=== PATIENT | male | born 1960 ===

== ENCOUNTER 2017-04-11 22:47 | Inpatient (IN) | payer OTHER ==
[2017-04-11] MEDS ORDERED: diltiaZEM 100 mg Vial ( ADD-VANTAGE ) IV ONE (23:53)
[2017-04-12 00:13] LABS: BASO # 0.1 K/uL (0.0-0.2); BASO % 1.2 % (0.0-2.0); EOS # 0.1 K/uL (0.0-0.7); EOS % 1.7 % (0.0-4.0); HEMOGLOBIN 12.4 g/dL (12.0-18.0); LYMPH # 1.7 K/uL (1.0-4.3); LYMPH % 24.7 % (20.0-40.0); MEAN CELL VOLUME 90.7 fl (80.0-94.0); MEAN CORPUSCULAR HEMOGLOBIN 29.5 pg (27.0-31.0); MEAN CORPUSCULAR HGB CONC 32.5 g/dL (33.0-37.0); MEAN PLATELET VOLUME 11.4 fl (7.2-11.7); MONO # 0.6 K/uL (0.0-0.8); NEUT # 4.4 K/uL (1.8-7.0); NEUT % 63.4 % (50.0-75.0); NRBC % 0.1 % (0.0-0.0); RBC 4.22 Mil/uL (4.40-5.90); RED CELL DISTRIBUTION WIDTH 14.7 % (11.5-14.5)
[2017-04-12] MEDS ORDERED: Sodium Chloride 0.9% 500 ML IV STA (00:23)
[2017-04-12 00:27] LABS: ALB/GLOB RATIO 1.3 (1.0-2.1); ALBUMIN 4.2 g/dL (3.5-5.0); ALT/SGPT 38 U/L (21-72); AST/SGOT 27 U/L (17-59); BLOOD UREA NITROGEN 26 mg/dl (9-20); CALCIUM 8.9 mg/dL (8.4-10.2); GFR AFRICAN-AMERICAN > 60; GFR NON-AFRICAN AMERICAN > 60
[2017-04-12] MEDS ORDERED: Sodium Chloride 0.9% 1,000 ML IV STA ×2 (00:56→00:57)
[2017-04-12 01:03] LABS: INR 5.3 (0.9-1.2); PROTHROMBIN TIME 61.7 Seconds (9.8-13.1)
[2017-04-12 01:04] LABS: PARTIAL THROMBOPLASTIN TIME 48.3 Seconds (25.6-37.1)
--- NOTE | 2017-04-12 01:05 | ED PDOC ---
HPI: Chest Pain Time Seen by Provider: 04/11/17 23:24 Chief Complaint (Nursing): Dizziness/Lightheaded Chief Complaint (Provider): Chest Pain History Per: Patient History/Exam Limitations: no limitations (x) Onset/Duration Of Symptoms: Hrs (x2) Current Symptoms Are (Timing): Still Present Quality: Tightness (in shoulders) Associated Symptoms: Nausea, Dyspnea (mild). denies: Diaphoresis Additional Complaint(s): 56 year old male presents to ED with complaints of chest pain and palpitations x2 hours and has a past medical history of DM, AFIB, and dyslipidemia. Describes a "tightness" in his shoulders, and confirms that symptoms are concordant with previous episodes of AFIB. States that he is compliant with his medications and notes that he is on Coumadin. (-) vomiting, diaphoresis, cough, or fever. (+) SOB and nausea. PCP: [facility] Past Medical History Reviewed: Historical Data, Nursing Documentation, Vital Signs Vital Signs: Last Vital Signs Temp 98.2 F 04/14/17 12:05 Pulse 97 H 04/14/17 12:05 Resp 18 04/14/17 12:05 BP 119/78 04/14/17 12:05 Pulse Ox 99 04/14/17 12:05 - Medical History PMH: Atrial Fibrillation, Cardia Arrhythmia, Diabetes, Gastritis, HTN Denies: Chronic Kidney Disease - Surgical History Surgical History: Denies: No Surg Hx Other surgeries: right leg surgery, unspecified - Family History Family History: States: No Known Family Hx - Social History Current smoker - smoking cessation education provided: No Ex-Smoker (has not smoked in the last 12 months): No Alcohol: < 2 Drinks/Day Drugs: Denies - Home Medications Home Medications: Ambulatory Orders Medication Instructions Recorded Carvedilol [Coreg] 25 mg PO BID #60 04/14/17 Digoxin [Lanoxin] 0.25 mg PO DAILY #30 tab 04/14/17 Fenofibrate [Triglide] 160 mg PO DAILY #30 04/14/17 Losartan [Cozaar] 50 mg PO DAILY #30 04/14/17 Lovastatin 20 mg PO DAILY #30 04/14/17 Warfarin [Coumadin] 1 mg PO DAILY #7 04/14/17 metFORMIN [glucOPHAGE] 500 mg PO DAILY #30 04/14/17 - Allergies Allergies/Adverse Reactions: Allergies Allergy/AdvReac Type Severity Reaction Status Date / Time No Known Allergies Allergy Verified 04/11/17 23:07 CHRISTINE Risk Score for UA/NSTEMI - CHRISTINE Risk Score Age > 64: NO CHRISTINE Score: 0 Risk %: 5% Curb-65 Severity Score - CURB-65 Severity Score Confusion: No Respiratory Rate greater than/equal to 30: No Systolic BP <90 or Diastolic BP less than/equal 60mmHg: No Age >64: No Curb-65 Score: 0 Percentage 30-day mortality: 0.6% Wells Criteria for PE - Wells Criteria for Pulmonary Embolism Clinical Signs and Symptoms of DVT: No P.E is #1 Diagnosis, or Equally Likely: No Heart Rate >100: Yes Immobilization at least 3 days;Surgery previous 4 weeks: No Previous, objectively diagnosed PE or DVT: No Hemoptysis: No Malignancy w/treatment within 6 months, or palliative: No Total Score: 1.5 Review of Systems ROS Statement: Except As Marked, All Systems Reviewed And Found Negative Constitutional: Negative for: Fever, Sweats Cardiovascular: Positive for: Chest Pain, Palpitations Respiratory: Positive for: Shortness of Breath. Negative for: Cough Gastrointestinal: Positive for: Nausea. Negative for: Vomiting Musculoskeletal: Positive for: Shoulder Pain (tightness in shoulders) Physical Exam - Reviewed Nursing Documentation Reviewed: Yes Vital Signs Reviewed: Yes - Physical Exam Appears: Positive for: Non-toxic, No Acute Distress Head Exam: Positive for: ATRAUMATIC Skin: Positive for: Normal Color, Warm, Dry Eye Exam: Positive for: Normal appearance, EOMI, PERRL ENT: Positive for: Normal ENT Inspection Neck: Positive for: Normal, Painless ROM, Supple Cardiovascular/Chest: Positive for: Tachycardia, Irregularly Irregular. Negative for: Regular Rate, Rhythm Respiratory: Positive for: Normal Breath Sounds. Negative for: Respiratory Distress Gastrointestinal/Abdominal: Positive for: Normal Exam, Soft. Negative for: Tenderness Back: Positive for: Normal Inspection Extremity: Positive for: Normal ROM. Negative for: Deformity Neurologic/Psych: Positive for: Alert, Oriented. Negative for: Motor/Sensory Deficits - Laboratory Results Result Diagrams: 04/13/17 04:20 04/14/17 05:00 - ECG ECG Rhythm: Positive for: Atrial Fibrillation Interpretation Of ECG: AFIB and RVR Rate: 127 (at 2256) O2 Sat by Pulse Oximetry: 98 (RA) Pulse Ox Interpretation: Normal - Critical Care Total Time (In Min): 60 Medical Decision Making Medical Decision Makin Initial impression: rapid AFIB in setting of known AFIB Initial plan: * EKG * Labs * Trop I * PTT/PT * Cardizem 20mg IV * Accucheck * Re-eval 2355 * Cardizem 100mg IV * Re-eval Patient's rate has improved, still AFIB but controlled rate in 80s. Patient complaints of lightheadedness and additional nausea. Patient is hypotensive after initial administration of Cardizem. Fluid bolus ordered 0023 * Zofran Inj 4mg IVP * NS IV 0100 * CT ANGIO CHEST * NS IV 0115 * EKG * CXR Labs significant for elevated INR but are otherwise within normal limits. Patient will be admitted as a telemetry inpatient under Dr. Cano. Disposition - Clinical Impression Clinical Impression: Atrial fibrillation with RVR, Chest pain Discussed With DrTabitha: Khang Cano Comment: TELE inpatient - Disposition Disposition Time: 00:45 Condition: STABLE - Pt Status Changed To: Hospital Disposition Of: Inpatient (TELE) - Admit Certification Admit to Inpatient:: After my assessment, the patient will require hospitalization for at least two midnights. This is because of the severity of symptoms shown, intensity of services needed, and/or the medical risk in this patient being treated as an outpatient.
--- NOTE | 2017-04-12 01:23 | CP.PCM.HP ---
History of Present Illness - History of Present Illness History of Present Illness: PCP: Not on staff Chief Complaint: Lightheadedness/ chest pain HPI:56 yeas old male with hx of DM, HLD, HTN and A Fib comes with 2 hours of aa tightness type of chest pain radiating to the shoulders and similar in quality as when he has prior episodes of rapid A Fib. No nausea, vomits, no palpitation nor diaphoresis. He does refer lightheadedness, headache and pain to the back. PMH: A Fib, Diabetes, Gastritis, HTN, HLD PSH: Right Tibia ORIF SH; No illegal drugs; Alcohol daily; No smoking; Live alone; works in a [employer]. AllergY: NKDA Present on Admission - Present on Admission Any Indicators Present on Admission: No History of DVT/PE: No History of Uncontrolled Diabetes: No Urinary Catheter: No Decubitus Ulcer Present: No Review of Systems - Constitutional Constitutional: Headache. absent: Fatigue, Fever, Lethargy, Weakness - EENT Eyes: Requires Corrective Lenses. absent: Diplopia, Floaters, Photophobia, Sees Flashes Ears: absent: Decreased Hearing, Ear Discharge, Ear Pain, Tinnitus Nose/Mouth/Throat: absent: Epistaxis, Nasal Congestion, Nasal Discharge - Cardiovascular Cardiovascular: Chest Pain, Dyspnea. absent: Edema - Respiratory Respiratory: Dyspnea, Chest Congestion. absent: Cough - Gastrointestinal Gastrointestinal: absent: Constipation, Diarrhea, Nausea, Vomiting - Genitourinary Genitourinary: absent: Dysuria, Flank Pain, Hematuria - Musculoskeletal Musculoskeletal: Back Pain. absent: Arthralgias, Muscle Cramps, Numbness - Integumentary Integumentary: absent: Pruritus, Rash, Skin Ulcer, Sores, Striae, Swelling - Neurological Neurological: Dizziness, Headaches. absent: Confusion, Focal Weakness, Vertigo - Psychiatric Psychiatric: absent: Anxiety, Depression, Panic Attacks - Endocrine Endocrine: absent: Palpitations, Polydipsia, Polyphagia, Polyuria - Hematologic/Lymphatic Hematologic: absent: Easy Bleeding, Easy Bruising Past Patient History - Past Social History Smoking Status: Never Smoked Chewing Tobacco Use: No Cigar Use: No Alcohol: < 2 Drinks/Day Home Situation {Lives}: Alone - CARDIAC Hx Cardia Arrhythmia: Yes Hx Hypertension: Yes - PULMONARY Hx Respiratory Disorders: No - NEUROLOGICAL Hx Neurological Disorder: No - HEENT Hx HEENT Problems: No - RENAL Hx Chronic Kidney Disease: No - ENDOCRINE/METABOLIC Hx Endocrine Disorders: No - HEMATOLOGICAL/ONCOLOGICAL Hx Blood Disorders: No - INTEGUMENTARY Hx Dermatological Problems: No - MUSCULOSKELETAL/RHEUMATOLOGICAL Hx Musculoskeletal Disorders: No - GASTROINTESTINAL Hx Gastritis: Yes - GENITOURINARY/GYNECOLOGICAL Hx Genitourinary Disorders: No - PSYCHIATRIC Hx Psychophysiologic Disorder: No Hx Substance Use: No - SURGICAL HISTORY Hx Surgeries: Yes Other/Comment: Right Tibia ORIF - ANESTHESIA Hx Anesthesia: Yes Hx Anesthesia Reactions: No Meds Allergies/Adverse Reactions: Allergies Allergy/AdvReac Type Severity Reaction Status Date / Time No Known Allergies Allergy Verified 04/11/17 23:07 Physical Exam - Constitutional Appears: No Acute Distress - Head Exam Head Exam: ATRAUMATIC, NORMAL INSPECTION, NORMOCEPHALIC - Eye Exam Eye Exam: EOMI, PERRL Pupil Exam: NORMAL ACCOMODATION, PERRL - ENT Exam ENT Exam: Mucous Membranes Moist, Normal Exam, Normal External Ear Exam, Normal Oropharynx - Neck Exam Neck exam: Positive for: Full Rom, Normal Inspection. Negative for: Lymphadenopathy, Tenderness - Respiratory Exam Respiratory Exam: Rales. absent: Rhonchi, Wheezes, Stridor - Cardiovascular Exam Cardiovascular Exam: Irregular Rhythm, RRR, +S1, +S2 - GI/Abdominal Exam Additional comments: Full, Soft Nontender, no viceromegaleas - Rectal Exam Rectal Exam: Deferred - Extremities Exam Extremities exam: Positive for: full ROM, normal inspection - Back Exam Back exam: NORMAL INSPECTION. absent: CVA tenderness (L), CVA tenderness (R) - Neurological Exam Neurological exam: Alert, CN II-XII Intact, Oriented x3, Reflexes Normal - Psychiatric Exam Psychiatric exam: Normal Affect, Normal Mood - Skin Skin Exam: Dry, Intact, Normal Color, Warm Results - Vital Signs Recent Vital Signs: Last Vital Signs Temp 98.0 F 04/11/17 23:03 Pulse 84 04/12/17 00:21 Resp 16 04/12/17 00:21 BP 92/61 L 04/12/17 00:21 Pulse Ox 98 04/12/17 01:05 - Labs Result Diagrams: 04/11/17 23:51 04/11/17 23:51 Labs: Laboratory Results - last 24 hr 04/11/17 04/11/17 04/11/17 23:51 23:51 23:51 WBC 7.0 RBC 4.22 L Hgb 12.4 Hct 38.3 MCV 90.7 MCH 29.5 MCHC 32.5 L RDW 14.7 H Plt Count 235 MPV 11.4 Neut % (Auto) 63.4 Lymph % (Auto) 24.7 Nance % (Auto) 9.0 Eos % (Auto) 1.7 Baso % (Auto) 1.2 Neut # 4.4 Lymph # 1.7 Nance # 0.6 Eos # 0.1 Baso # 0.1 PT 61.7 H* INR 5.3 H APTT 48.3 H Sodium 144 Potassium 4.2 Chloride 110 H Carbon Dioxide 21 L Anion Gap 17 BUN 26 H Creatinine 1.2 Est GFR ( Amer) > 60 Est GFR (Non-Af Amer) > 60 Random Glucose 111 H Calcium 8.9 Total Bilirubin 0.7 AST 27 ALT 38 Alkaline Phosphatase 33 L Troponin I < 0.0120 Total Protein 7.5 Albumin 4.2 Globulin 3.3 Albumin/Globulin Ratio 1.3 - EKG Data EKG comments: Fib 127/min - Imaging and Cardiology CT scan - chest Status: Report reviewed by me Additional comment: FINDINGS: Pulmonary arteries: No pulmonary embolism. Aorta: No thoracic aortic aneurysm. Lungs: No mass. No consolidation. Interstitial thickening is identified, with bilateral (small) pleural effusions and adjacent compressive atelectasis. Pleural spaces: No significant effusion. No pneumothorax. Heart: Marked left atrial enlargement. The left ventricle is also enlarged. No significant pericardial effusion. No evidence of right heart dysfunction. Bones: No acute fracture. Lymph nodes: No pathologically enlarged lymph nodes. IMPRESSION: No pulmonary embolism. Significant left atrial enlargement. Interstitial thickening with bilateral pleural effusions and adjacent compressive atelectasis. Chest x-ray Status: Image reviewed by me Additional comment: Cardiomegaly with no infiltrates Assessment & Plan - Assessment and Plan (Free Text) Assessment: #. A Fib With RVR #. Chest Pain #. Coumadin Toxicity #. dehydration #. Anemia Plan: 56 yeas old male with hx of DM, HLD, HTN and A Fib comes with 2 hours of aa tightness type of chest pain radiating to the shoulders and similar in quality as when he has prior episodes of rapid A Fib. No nausea, vomits, no palpitation nor diaphoresis. He does refer lightheadedness, headache and pain to the upper back. #. A Fib With RVR. patient received Bolus of Cardizem in ED - admit to Telemetry - cardiac monitoring -Consult Dr Liang slackman - Continue IV Cardizem drip and titrate to HR<100 #. Chest Pain - Cardiology on consult - serial troponina nd EKG - ECHO for wall motion and EJ fraction #. Coumadin Toxicity - Coumadin on hold - follow INR daily #. dehydration - IV fluids NS #. Anemia - follow HB #/ DVT Prophylaxis - Patient with supratherapeutic INR - SCD #. Code Status: Full - Date & Time Date: 04/12/17 Time: 01:23
[2017-04-12] MEDS ORDERED: Iohexol 300 100 ML IJ ONE (01:30)
[2017-04-12] MEDS ORDERED: Sodium Chloride 0.9% 50 ML IV ONE (01:30)
[2017-04-12] MEDS ORDERED: Sodium Chloride 0.9% 1,000 ML IV SCH (03:00)
[2017-04-12 04:50] VITALS: BMI 28.1
[2017-04-12] MEDS: Pravastatin Sodium 20 MG TAB PO SCH (08:17)
[2017-04-12 08:26] LABS: HEMOGLOBIN 12.3 g/dL (12.0-18.0); MEAN CELL VOLUME 90.5 fl (80.0-94.0); MEAN CORPUSCULAR HEMOGLOBIN 29.4 pg (27.0-31.0); MEAN CORPUSCULAR HGB CONC 32.5 g/dL (33.0-37.0); RBC 4.18 Mil/uL (4.40-5.90); RED CELL DISTRIBUTION WIDTH 14.7 % (11.5-14.5); WHITE BLOOD COUNT 7.4 K/uL (4.8-10.8)
--- NOTE | 2017-04-12 08:31 | CARD ---
APPROVED REPORT EKG Measurement Heart [id number] <Conclusion> Atrial fibrillation with rapid ventricular response Rightward axis Abnormal ECG
--- NOTE | 2017-04-12 08:34 | CARD ---
APPROVED REPORT EKG Measurement Heart [id number] <Conclusion> Atrial fibrillation Rightward axis Abnormal ECG
[2017-04-12 08:42] LABS: PARTIAL THROMBOPLASTIN TIME 46.6 Seconds (25.6-37.1)
[2017-04-12] MEDS ORDERED: Patient's Own Med (Lovastatin [Lovastatin] 20 mg) PO SCH (09:00)
[2017-04-12 10:09] LABS: INR 4.9 (0.9-1.2)
[2017-04-12 10:11] LABS: PROTHROMBIN TIME 57.2 Seconds (9.8-13.1)
--- NOTE | 2017-04-12 10:50 | RAD ---
HISTORY: Chest pain. COMPARISON: No prior. FINDINGS: LUNGS: No active pulmonary disease. PLEURA: No significant pleural effusion identified, no pneumothorax apparent. CARDIOVASCULAR: Cardiomegaly. No evidence of acute, significant cardiovascular disease. OSSEOUS STRUCTURES: No significant abnormalities. VISUALIZED UPPER ABDOMEN: Normal. OTHER FINDINGS: None. IMPRESSION: No active disease.
[2017-04-12 10:52] LABS: IRON 33 ug/dL (49-181)
--- NOTE | 2017-04-12 10:55 | CT ---
PROCEDURE: CT Chest with contrast (Pulmonary Angiogram) HISTORY: chest pain r/o PE COMPARISON: None available. TECHNIQUE: Axial computed tomography images were obtained of the chest in the pulmonary arterial phase of enhancement. Coronal and sagittal reformatted images were created and reviewed. Maximum intensity projection (MIP) reconstructed images in the following planes: Axial only Intravenous contrast dose: 95 cc Omnipaque 300. Mean Hounsfield unit values in the main pulmonary artery: 431.92 Radiation dose: Total exam DLP = 443.25 mGy-cm. This CT exam was performed using one or more of the following dose reduction techniques: Automated exposure control, adjustment of the mA and/or kV according to patient size, and/or use of iterative reconstruction technique. FINDINGS: PULMONARY ARTERIES: Unremarkable. No pulmonary embolism. AORTA: No acute findings. No thoracic aortic aneurysm. LUNGS: Unremarkable. No nodule, mass or pulmonary consolidation. PLEURAL SPACES: Unremarkable. No effusion or pneuomothorax. HEART: Cardiomegaly. No evidence of acute, significant cardiovascular disease. LYMPH NODES: Hilar and mediastinal lymph nodes. The largest azygos lymph node measures 1.6 x 2.2 cm. The preponderance of other lymph nodes 1 cm or less. BONES, CHEST WALL: Unremarkable. No fracture or destructive lesion OTHER FINDINGS: Unremarkable. IMPRESSION: Unremarkable CT pulmonary angiogram. No pulmonary embolus.Additional benign and/or incidental findings described above. Concordant results (preliminary interpretation) provided by [facility]. Procedure Completed: :38. Preliminary ([facility]) Report: Dictated and Authenticated: 02:06. Final Interpretation: 10:53. April 12, 2017.
[2017-04-12 11:01] LABS: % IRON SATURATION 9 % (20-55); TOTAL IRON BINDING CAPACITY 346 ug/dL (250-450)
--- NOTE | 2017-04-12 11:06 | CP.PCM.CON ---
History of Present Illness - History of Present Illness History of Present Illness: This is a 56-year-old male who was admitted with chest pain. He has a history of atrial fibrillation and 1 minute he was in a rapid ventricular response. Patient denies having chest pains but does say that he had shortness of breath and palpitations. His chest prior to admission He claims this is exactly how he felt last time he was in atrial fibrillation. His home medications include Coreg and Coumadin 3 mg daily His PT and INR extremely elevated on admission His resting comfortably in bed and is asymptomatic. In atrial fibrillation and a controlled rate. EKG: Atrial Fibrillation Troponin: neg PMH: A Fib, Diabetes, Gastritis, HTN, HLD PSH: Right Tibia ORIF SH; No illegal drugs; Alcohol daily; No smoking; Live alone; works in a [employer]. AllergY: NKDA Review of Systems - Constitutional Constitutional: As Per HPI - Cardiovascular Cardiovascular: As Per HPI, Dyspnea, Irregular Heart Rhythm Past Patient History - Past Medical History & Family History Past Medical History?: Yes - Past Social History Smoking Status: Never Smoked Chewing Tobacco Use: No Cigar Use: No Alcohol: < 2 Drinks/Day Home Situation {Lives}: Alone - CARDIAC Hx Cardia Arrhythmia: Yes Hx Hypertension: Yes - PULMONARY Hx Respiratory Disorders: No - NEUROLOGICAL Hx Neurological Disorder: No - HEENT Hx HEENT Problems: No - RENAL Hx Chronic Kidney Disease: No - ENDOCRINE/METABOLIC Hx Endocrine Disorders: No - HEMATOLOGICAL/ONCOLOGICAL Hx Blood Disorders: No - INTEGUMENTARY Hx Dermatological Problems: No - MUSCULOSKELETAL/RHEUMATOLOGICAL Hx Musculoskeletal Disorders: No - GASTROINTESTINAL Hx Gastritis: Yes - GENITOURINARY/GYNECOLOGICAL Hx Genitourinary Disorders: No - PSYCHIATRIC Hx Psychophysiologic Disorder: No Hx Substance Use: No - SURGICAL HISTORY Hx Surgeries: Yes Other/Comment: Right Tibia ORIF - ANESTHESIA Hx Anesthesia: Yes Hx Anesthesia Reactions: No Meds Allergies/Adverse Reactions: Allergies Allergy/AdvReac Type Severity Reaction Status Date / Time No Known Allergies Allergy Verified 04/11/17 23:07 - Medications Medications: Current Medications Carvedilol (Coreg) 25 mg PO BID [facility] Last Admin: 04/12/17 08:17 Dose: 25 mg Fenofibrate (Tricor) 145 mg PO DAILY [facility] Last Admin: 04/12/17 08:17 Dose: 145 mg Diltiazem HCl 100 mg/ Sodium (Chloride) 120 mls @ 6 mls/hr IV .Q20H ONE; 5 MG/ HR PRN Reason: Protocol Stop: 04/12/17 19:52 Last Admin: 04/12/17 03:16 Dose: Not Given Lorazepam (Ativan) 1 mg IVP Q4 PRN PRN Reason: Symptoms of alcohol withdrawl Ondansetron HCl (Zofran Inj) 4 mg IVP Q4 PRN PRN Reason: Nausea/Vomiting Pravastatin Sodium (Pravachol) 20 mg PO DAILY [facility] Last Admin: 04/12/17 08:17 Dose: 20 mg Thiamine HCl (Vitamin B1 Tab) 100 mg PO DAILY [facility] Physical Exam - Constitutional Appears: Well - Head Exam Head Exam: NORMAL INSPECTION - Eye Exam Eye Exam: Normal appearance - ENT Exam ENT Exam: Normal Exam - Neck Exam Neck exam: Positive for: Normal Inspection - Respiratory Exam Respiratory Exam: NORMAL BREATHING PATTERN - Cardiovascular Exam Cardiovascular Exam: Irregular Rhythm - GI/Abdominal Exam GI & Abdominal Exam: Normal Bowel Sounds Results - Vital Signs Recent Vital Signs: Last Vital Signs Temp 98.8 F 04/12/17 07:52 Pulse 120 H 04/12/17 08:17 Resp 20 04/12/17 07:52 BP 90/52 L 04/12/17 08:17 Pulse Ox 100 04/12/17 07:52 - Labs Result Diagrams: 04/12/17 08:00 04/11/17 23:51 Labs: Laboratory Results - last 24 hr 04/12/17 04/12/17 04/12/17 02:53 05:39 08:00 WBC RBC Hgb Hct MCV MCH MCHC RDW Plt Count PT INR APTT POC Glucose (mg/dL) 180 H 91 Troponin I < 0.0120 04/12/17 04/12/17 08:00 08:00 WBC 7.4 RBC 4.18 L Hgb 12.3 Hct 37.9 MCV 90.5 MCH 29.4 MCHC 32.5 L RDW 14.7 H Plt Count 222 PT 57.2 H* INR 4.9 H APTT 46.6 H POC Glucose (mg/dL) Troponin I Assessment & Plan (1) Atrial fibrillation with RVR Assessment and Plan: Patient had been on a diltiazem drip and now is on Coreg 25 mg twice a day His heart rate is controlled at this point. Cardiac-zaragoza he appears stable. We'll continue to follow with you Status: Acute (2) Essential (primary) hypertension Status: Acute (3) DM2 (diabetes mellitus, type 2) Status: Acute
[2017-04-12] MEDS ORDERED: Multivitamin (MVI) 10 ML, Folic Acid 1 MG, Thiamine 100 MG in Dextrose 5%/0.45% NS 1,00... IV ONE (12:20)
[2017-04-12 12:42] LABS: BLOOD UREA NITROGEN 25 mg/dl (9-20); CALCIUM 8.2 mg/dL (8.4-10.2); GFR AFRICAN-AMERICAN > 60; GFR NON-AFRICAN AMERICAN > 60
[2017-04-12 13:39] LABS: MAGNESIUM 1.9 MG/DL (1.6-2.3)
--- NOTE | 2017-04-12 14:53 | CARD ---
APPROVED REPORT EXAM: Two-dimensional and M-mode echocardiogram with Doppler and color Doppler. Other Information Quality : GoodRhythm : Atrial Fibrillation INDICATION LV Function:SystolicDiastolic 2D DIMENSIONS IVSd1.02 (0.7-1.1cm)LVDd5.89 (3.9-5.9cm) LVOT Diameter2.42 (1.8-2.4cm)PWd0.81 (0.7-1.1cm) IVSs1.03 (0.8-1.2cm)LVDs5.48 (2.5-4.0cm) FS (%) 7.0 %PWs1.17 (0.8-1.2cm) M-Mode DIMENSIONS Left Atrium (MM)7.86 (2.5-4.0cm)IVSd0.66 (0.7-1.1cm) Aortic Root2.34 (2.2-3.7cm)LVDd7.23 (4.0-5.6cm) Aortic Cusp Exc.1.75 (1.5-2.0cm)PWd0.91 (0.7-1.1cm) IVSs0.94 cmFS (%) 21 % LVDs5.69 (2.0-3.8cm)PWs1.15 cm Mitral Valve E/A ratio0.0 TDI E/Lateral E'0.0E/Medial E'0.0 Tricuspid Valve TR Peak [id number] [id number] Peak Gr.47mmHg [id number] LEFT VENTRICLE The Left Ventricle is mildly dilated. There is normal left ventricular wall thickness. Left ventricle systolic function is mildly to moderately impaired. The Ejection Fraction is 30-35 There was mild generalised hypokinesia Could not be assesed due to A Fib. RIGHT VENTRICLE The right ventricle is normal size. The right ventricular systolic function is normal. ATRIA The left atrium is severely dilated. The right atrium is moderately dilated. AORTIC VALVE The aortic valve is normal in structure and function. No aortic regurgitation is present. There is no aortic valvular stenosis. MITRAL VALVE The mitral valve is normal in structure. There is no evidence of mitral valve prolapse. There is no mitral valve stenosis. Mitral regurgitation is severe. TRICUSPID VALVE The tricuspid valve is normal in structure. There is moderate tricuspid regurgitation. Right ventricular systolic pressure is estimated at 60 mmHg. There is severe pulmonary hypertension. PULMONIC VALVE The pulmonary valve is normal in structure and function. There is no pulmonic valvular regurgitation. GREAT VESSELS The aortic root is normal in size. The IVC is dilated. PERICARDIAL EFFUSION The pericardium appears normal. <Conclusion> The Left Ventricle is mildly dilated. There is normal left ventricular wall thickness. There was mild generalised hypokinesia Left ventricle systolic function is mildly to moderately impaired. The Ejection Fraction is 30-35 The left atrium is severely dilated. The right atrium is moderately dilated. Mitral regurgitation is severe. There is moderate tricuspid regurgitation. There is severe pulmonary hypertension. The IVC is dilated.
[2017-04-12] MEDS: Pantoprazole 40 mg EC Tab PO SCH (17:20)
[2017-04-12 19:34] LABS: FOLATE 12.9 ng/mL
[2017-04-13 05:17] LABS: HEMOGLOBIN 12.3 g/dL (12.0-18.0); MEAN CELL VOLUME 91.6 fl (80.0-94.0); MEAN CORPUSCULAR HEMOGLOBIN 29.5 pg (27.0-31.0); MEAN CORPUSCULAR HGB CONC 32.3 g/dL (33.0-37.0); RBC 4.15 Mil/uL (4.40-5.90); RED CELL DISTRIBUTION WIDTH 14.8 % (11.5-14.5); WHITE BLOOD COUNT 7.6 K/uL (4.8-10.8)
[2017-04-13 05:33] LABS: ALB/GLOB RATIO 1.3 (1.0-2.1); ALBUMIN 3.8 g/dL (3.5-5.0); ALT/SGPT 39 U/L (21-72); AST/SGOT 30 U/L (17-59); BLOOD UREA NITROGEN 22 mg/dl (9-20); CALCIUM 8.5 mg/dL (8.4-10.2); GFR AFRICAN-AMERICAN > 60; GFR NON-AFRICAN AMERICAN > 60
[2017-04-13 05:46] LABS: INR 4.1 (0.9-1.2); PROTHROMBIN TIME 47.9 Seconds (9.8-13.1)
[2017-04-13 05:47] LABS: PARTIAL THROMBOPLASTIN TIME 44.1 Seconds (25.6-37.1)
[2017-04-13] MEDS: Pravastatin Sodium 20 MG TAB PO SCH (08:22)
[2017-04-13] MEDS: Pantoprazole 40 mg EC Tab PO SCH (08:24)
[2017-04-13] MEDS ORDERED: Digoxin 500 mcg/2ml (0.5 mg/2ml) Inj IVP ONE (08:30)
--- NOTE | 2017-04-13 08:53 | CP.PCM.PN ---
Subjective - Date & Time of Evaluation Date of Evaluation: 04/13/17 Time of Evaluation: 08:50 - Subjective Subjective: Called by nurse for this Telemetry overflow patient c/o dizziness and noted to be ion persistent rapid A Fib with HR 128 despite dose of digoxin 0.5mfg IV and orders noted to start on PO digoxin. Awake and facial appearance noted to be uncomfortable, denies any chest discomfort nor SOB, no hypoxemia noted, Bp 140/76. Decision made to treat with Cardizem bolus 20mg and start Cardizem drip at 5 mg/hr. HR responded and now at 105.
[2017-04-13] MEDS ORDERED: Digoxin 0.05 mg/mL Elixir 5mL PO SCH (09:00)
[2017-04-13] MEDS ORDERED: Digoxin 250 mcg (0.25 mg) Tab PO SCH (09:00)
--- NOTE | 2017-04-13 11:19 | CP.PCM.PN ---
Subjective - Date & Time of Evaluation Date of Evaluation: 04/13/17 Time of Evaluation: 10:30 - Subjective Subjective: Pt's HR remains elevated despite Coreg - Dig added by Dr Liang however still elevated HR added dose of Cardizem IV 10 mg x 1 till Dig and Coreg takes effect had palpitaion no CP no SOB no abd pain no signs of withdrawal ' admits to drinking beer about 4 bottles/day but denies tremors Objective - Vital Signs/Intake and Output Vital Signs (last 24 hours): Temp Pulse Resp BP Pulse Ox 97.9 F 133 H 12 156/86 H 95 04/13/17 08:00 04/13/17 08:47 04/13/17 08:47 04/13/17 08:47 04/13/17 08:47 Intake and Output: 04/13/17 04/13/17 06:59 18:59 Intake Total 500 Output Total 350 Balance 150 - Medications Medications: Current Medications Carvedilol (Coreg) 25 mg PO BID [facility] Last Admin: 04/13/17 08:22 Dose: 25 mg Digoxin (Lanoxin) 0.25 mg PO DAILY [facility] Fenofibrate (Tricor) 145 mg PO DAILY [facility] Last Admin: 04/13/17 08:22 Dose: 145 mg Lorazepam (Ativan) 1 mg IVP Q4 PRN PRN Reason: Symptoms of alcohol withdrawl Ondansetron HCl (Zofran Inj) 4 mg IVP Q4 PRN PRN Reason: Nausea/Vomiting Pantoprazole Sodium (Protonix Ec Tab) 40 mg PO DAILY [facility] Last Admin: 04/13/17 08:24 Dose: 40 mg Pravastatin Sodium (Pravachol) 20 mg PO DAILY [facility] Last Admin: 04/13/17 08:22 Dose: 20 mg Thiamine HCl (Vitamin B1 Tab) 100 mg PO DAILY [facility] Last Admin: 04/13/17 08:23 Dose: 100 mg - Labs Labs: 04/13/17 04:20 04/13/17 04:20 PT 47.9 Seconds (9.8-13.1) H* D 04/13/17 04:20 INR 4.1 (0.9-1.2) H 04/13/17 04:20 APTT 44.1 Seconds (25.6-37.1) H 04/13/17 04:20 - Constitutional Appears: No Acute Distress - Head Exam Head Exam: NORMAL INSPECTION, NORMOCEPHALIC - Eye Exam Eye Exam: EOMI, Normal appearance, PERRL Pupil Exam: NORMAL ACCOMODATION - ENT Exam ENT Exam: Mucous Membranes Moist, Normal External Ear Exam - Neck Exam Neck Exam: Full ROM. absent: Meningismus - Respiratory Exam Respiratory Exam: NORMAL BREATHING PATTERN. absent: Rales, Wheezes, Respiratory Distress - Cardiovascular Exam Cardiovascular Exam: Tachycardia, Irregular Rhythm, +S1, +S2 - GI/Abdominal Exam GI & Abdominal Exam: Distended, Soft, Normal Bowel Sounds. absent: Tenderness - Extremities Exam Extremities Exam: Full ROM, Normal Capillary Refill. absent: Calf Tenderness, Joint Swelling - Back Exam Back Exam: Full ROM, NORMAL INSPECTION. absent: CVA tenderness (L), CVA tenderness (R), paraspinal tenderness - Neurological Exam Neurological Exam: Alert, Awake, CN II-XII Intact, Normal Gait, Oriented x3 Neuro motor strength exam: Left Upper Extremity: 5, Right Upper Extremity: 5, Left Lower Extremity: 5, Right Lower Extremity: 5 - Psychiatric Exam Psychiatric exam: Normal Affect, Normal Mood - Skin Skin Exam: Dry, Normal Color, Warm Assessment and Plan (1) Atrial fibrillation with RVR Status: Acute (2) Coumadin toxicity Status: Acute (3) Essential (primary) hypertension Status: Chronic (4) DM2 (diabetes mellitus, type 2) Status: Chronic (5) DVT prophylaxis Status: Acute - Assessment and Plan (Free Text) Assessment: 56 y/o gent with hx of A Fib, HTN, DM came in bec of chest tightness. Found to be in rapid A Fib. (1) Atrial fibrillation with RVR Status: Acute initially started on Cardizem drip, now off drip on Coreg HR still elevated Cardio consulted- Dr Liang- rec to add Digoxin TSH : normal CTA of chest : neg PE ECHO: severe hypokinesia, Dilated atrium, Severe MR and Severe Pulm HTN, Mod TR , EF=30-35% (2) Coumadin toxicity Status: Acute pt takes 1mg x 5 days and 2mg x 2days INR= prolonged 5.3, today its 4.1 Coumadin on hold (3) Essential (primary) hypertension Status: Chronic cont Coreg (4) DM2 (diabetes mellitus, type 2) Status: Chronic hold Metformin as pt received IV contrast during CTA accucheck with coverage (5) DVT prophylaxis Status: Acute INR proloned - pt on Coumadin
--- NOTE | 2017-04-13 12:22 | CP.PCM.PN ---
Subjective - Date & Time of Evaluation Date of Evaluation: 04/13/17 Time of Evaluation: 11:00 - Subjective Subjective: the patient remains in atrial fibrillation Heart rate is 135 bpm despite being on Coreg 25mg BID reported digoxin 0.5 mg IV to be given By 0.25 mg by mouth daily desoite this the heart rate remained elevated and a diltiazem drip was started his heart rate now is 90-95 bpm Objective - Vital Signs/Intake and Output Vital Signs (last 24 hours): Temp Pulse Resp BP Pulse Ox 99 F 92 H 28 H 137/96 H 99 04/13/17 12:00 04/13/17 12:00 04/13/17 12:00 04/13/17 12:00 04/13/17 12:00 Intake and Output: 04/13/17 04/13/17 06:59 18:59 Intake Total 500 Output Total 350 Balance 150 - Medications Medications: Current Medications Carvedilol (Coreg) 25 mg PO BID [facility] Last Admin: 04/13/17 08:22 Dose: 25 mg Digoxin (Lanoxin) 0.25 mg PO DAILY [facility] Fenofibrate (Tricor) 145 mg PO DAILY [facility] Last Admin: 04/13/17 08:22 Dose: 145 mg Lorazepam (Ativan) 1 mg IVP Q4 PRN PRN Reason: Symptoms of alcohol withdrawl Ondansetron HCl (Zofran Inj) 4 mg IVP Q4 PRN PRN Reason: Nausea/Vomiting Pantoprazole Sodium (Protonix Ec Tab) 40 mg PO DAILY [facility] Last Admin: 04/13/17 08:24 Dose: 40 mg Pravastatin Sodium (Pravachol) 20 mg PO DAILY [facility] Last Admin: 04/13/17 08:22 Dose: 20 mg Thiamine HCl (Vitamin B1 Tab) 100 mg PO DAILY [facility] Last Admin: 04/13/17 08:23 Dose: 100 mg - Labs Labs: 04/13/17 04:20 04/13/17 04:20 PT 47.9 Seconds (9.8-13.1) H* D 04/13/17 04:20 INR 4.1 (0.9-1.2) H 04/13/17 04:20 APTT 44.1 Seconds (25.6-37.1) H 04/13/17 04:20 Assessment and Plan (1) Atrial fibrillation with RVR Status: Acute (2) Essential (primary) hypertension Status: Acute (3) DM2 (diabetes mellitus, type 2) Status: Acute
[2017-04-14 06:56] LABS: INR 2.3 (0.9-1.2); PROTHROMBIN TIME 25.9 Seconds (9.8-13.1)
[2017-04-14 07:21] LABS: BLOOD UREA NITROGEN 15 mg/dl (9-20); CALCIUM 8.2 mg/dL (8.4-10.2); GFR AFRICAN-AMERICAN > 60; GFR NON-AFRICAN AMERICAN > 60
[2017-04-14 08:29] VITALS: RESP 18
[2017-04-14] MEDS ORDERED: Digoxin 250 mcg (0.25 mg) Tab PO SCH (09:00)
[2017-04-14] MEDS: Pravastatin Sodium 20 MG TAB PO SCH (09:14)
[2017-04-14] MEDS: Pantoprazole 40 mg EC Tab PO SCH (09:14)
[2017-04-14 09:15] VITALS: PULSE 98
[2017-04-14 12:05] VITALS: BP 119/78; TEMP 98.2
--- NOTE | 2017-04-14 12:07 | CP.PCM.DIS ---
Provider - Provider Date of Admission: 04/12/17 01:04 Attending physician: Khang Cano Primary care physician: Gabriel anguiano Consults: cardiology consult Time Spent in preparation of Discharge (in minutes): 20 Hospital Course - Lab Results Lab Results: Micro Results 04/12/17 05:14 Nose MRSA Culture (Admit) - Final MRSA NOT DETECTED Most Recent Lab Values WBC 7.6 K/uL (4.8-10.8) 04/13/17 04:20 RBC 4.15 Mil/uL (4.40-5.90) L 04/13/17 04:20 Hgb 12.3 g/dL (12.0-18.0) 04/13/17 04:20 Hct 38.0 % (35.0-51.0) 04/13/17 04:20 MCV 91.6 fl (80.0-94.0) 04/13/17 04:20 MCH 29.5 pg (27.0-31.0) 04/13/17 04:20 MCHC 32.3 g/dL (33.0-37.0) L 04/13/17 04:20 RDW 14.8 % (11.5-14.5) H 04/13/17 04:20 Plt Count 219 K/uL (130-400) 04/13/17 04:20 MPV 11.4 fl (7.2-11.7) 04/11/17 23:51 Neut % (Auto) 63.4 % (50.0-75.0) 04/11/17 23:51 Lymph % (Auto) 24.7 % (20.0-40.0) 04/11/17 23:51 [place] % (Auto) 9.0 % (0.0-10.0) 04/11/17 23:51 Eos % (Auto) 1.7 % (0.0-4.0) 04/11/17 23:51 Baso % (Auto) 1.2 % (0.0-2.0) 04/11/17 23:51 Neut # 4.4 K/uL (1.8-7.0) 04/11/17 23:51 Lymph # 1.7 K/uL (1.0-4.3) 04/11/17 23:51 [place] # 0.6 K/uL (0.0-0.8) 04/11/17 23:51 Eos # 0.1 K/uL (0.0-0.7) 04/11/17 23:51 Baso # 0.1 K/uL (0.0-0.2) 04/11/17 23:51 PT 25.9 Seconds (9.8-13.1) H D 04/14/17 05:00 INR 2.3 (0.9-1.2) H D 04/14/17 05:00 APTT 44.1 Seconds (25.6-37.1) H 04/13/17 04:20 Sodium 137 mmol/l (132-148) 04/14/17 05:00 Potassium 3.8 MMOL/L (3.6-5.0) 04/14/17 05:00 Chloride 105 mmol/L (98-107) 04/14/17 05:00 Carbon Dioxide 23 mmol/L (22-30) 04/14/17 05:00 Anion Gap 13 (10-20) 04/14/17 05:00 BUN 15 mg/dl (9-20) 04/14/17 05:00 Creatinine 0.9 mg/dL (0.8-1.5) 04/14/17 05:00 Est GFR ( Amer) > 60 04/14/17 05:00 Est GFR (Non-Af Amer) > 60 04/14/17 05:00 POC Glucose (mg/dL) 106 mg/dL (65-110) 04/14/17 05:17 Random Glucose 100 mg/dL (75-110) 04/14/17 05:00 Calcium 8.2 mg/dL (8.4-10.2) L 04/14/17 05:00 Phosphorus 3.6 mg/dl (2.5-4.5) 04/12/17 12:26 Magnesium 1.9 MG/DL (1.6-2.3) 04/12/17 12:26 Iron 33 ug/dL (49-181) L 04/12/17 08:30 TIBC 346 ug/dL (250-450) 04/12/17 08:30 % Saturation 9 % (20-55) L 04/12/17 08:30 Total Bilirubin 1.3 mg/dl (0.2-1.3) 04/13/17 04:20 AST 30 U/L (17-59) 04/13/17 04:20 ALT 39 U/L (21-72) 04/13/17 04:20 Alkaline Phosphatase 34 U/L (38-126) L 04/13/17 04:20 Troponin I < 0.0120 ng/mL (0.00-0.120) 04/12/17 08:00 Total Protein 6.8 G/DL (6.3-8.2) 04/13/17 04:20 Albumin 3.8 g/dL (3.5-5.0) 04/13/17 04:20 Globulin 3.0 gm/dL (2.2-3.9) 04/13/17 04:20 Albumin/Globulin Ratio 1.3 (1.0-2.1) 04/13/17 04:20 Vitamin B12 > 1000 pg/mL (239-931) H 04/12/17 09:00 Folate 12.9 ng/mL 04/12/17 09:00 TSH 3rd Generation 4.04 mIU/ML (0.46-4.68) 04/12/17 12:26 - Hospital Course Hospital Course: 56 y/o gent with hx of A Fib, HTN, DM came in bec of chest tightness. Found to be in rapid A Fib.His INR was found to be elevated 5.3. He was initially admitted in ICU for close monitoring. Coumadin was held , started on cardizem drip and cardiology was consulted . Troponins were cycled and were negative. Echo showed severe hypokinesia with EF 30-35 %, pulmonary HTN, severe MR. He was started on Coreg and digoxin po with better HR control. INR trended down to 2.3 and coumadin resumed to 1 mg po daily . Patient is Hemodynamically stable, with no chest pain on palpitations, no sob. will discharge patient home with follow up with [facility]. Stress test as out patient 1. Atrial fibrillation with RVR chronic initially started on Cardizem drip, now off drip Cardio consulted- Dr Liang on coreg and digoxin TSH : normal CTA of chest : neg PE ECHO: severe hypokinesia, Dilated atrium, Severe MR and Severe Pulm HTN, Mod TR , EF=30-35% will need stress test as out patient 2. Coumadin toxicity Acute pt takes 1mg x 5 days and 2mg x 2days INR was prolonged 5.3, today its 2.3 resume 1 mg coumadin daily 3. Essential (primary) hypertension Chronic , controlled cont Coreg 4. DM2 (diabetes mellitus, type 2) Chronic held Metformin as pt received IV contrast during CTA accucheck with coverage resume metformin 5. DVT prophylaxis on Coumadin Discharge Exam - Head Exam Head Exam: NORMAL INSPECTION, NORMOCEPHALIC - Eye Exam Eye Exam: EOMI, Normal appearance, PERRL Pupil Exam: NORMAL ACCOMODATION - ENT Exam ENT Exam: Mucous Membranes Moist, Normal Exam - Neck Exam Neck exam: Full Rom, Normal Inspection - Respiratory Exam Respiratory Exam: Clear to PA & Lateral, NORMAL BREATHING PATTERN. absent: Rhonchi, Wheezes - Cardiovascular Exam Cardiovascular Exam: Irregular Rhythm, RRR. absent: JVD - GI/Abdominal Exam GI & Abdominal Exam: Normal Bowel Sounds, Soft. absent: Distended, Guarding, Rebound, Tenderness - Rectal Exam Rectal Exam: Deferred - Extremities Exam Extremities exam: normal capillary refill, normal inspection, pedal pulses present - Back Exam Back exam: NORMAL INSPECTION - Neurological Exam Neurological exam: Alert, CN II-XII Intact, Oriented x3, Reflexes Normal - Psychiatric Exam Psychiatric exam: Normal Affect, Normal Mood - Skin Skin Exam: Dry, Intact, Normal Color, Warm Discharge Plan - Discharge Medications Prescriptions: Carvedilol [Coreg] 25 mg PO BID #60 Digoxin [Lanoxin] 0.25 mg PO DAILY #30 tab Fenofibrate [Triglide] 160 mg PO DAILY #30 Losartan [Cozaar] 50 mg PO DAILY #30 Lovastatin 20 mg PO DAILY #30 metFORMIN [glucOPHAGE] 500 mg PO DAILY #30 Warfarin [Coumadin] 1 mg PO DAILY #7 - Follow Up Plan Condition: STABLE Disposition: HOME/ ROUTINE Patient education suggested?: Yes Instructions: Atrial Fibrillation (DC) Referrals: [facility] [Outside] Clinical Quality Measures - CQM - Heart Failure Ejection Fraction: Less Than 40 % Left Ventricular Function to be assessed after discharge: Yes RIMA Inhibitor Prescribed: Yes Beta-Raheem Prescribed: Carvedilol AnticoagulationTherapy for Atrial Fibrillation/Atrialflutter: Yes Will be discharged to: Home Follow Up Date (must be within 7 days from discharge): 04/18/17 ([facility] ) Follow Up Time: 09:00
[2017-04-14 20:24] VITALS: PULSE 127; O2SAT 98
--- NOTE | 2017-04-21 14:10 | PN ---
This is Dr. Hugh Zapata dictating a critical care progress note on patient: Eliezer Edouard DON 04/12/2017 Patient in ICU Bed 433. Time spent: 35 minutes. Patient is seen and evaluated at the bedside. *Given since admission reviewed and discussed with admitting physician. 56 yo male with Hx significant for EtOh dependence, normal ischemic cardiomyopathy, A-fib on Coumadin. Admitted with general weakness, tachycardia , SOB and hypercoagulopathy. Remains alert, awake and follows commands appropriately. Denies headache, SOB, chest pain , diarrhea , and dysuria. Vitals: Temperature 98.8 HR: 113-120, irregular. Respiratory rate: 20 BP 190-107 /52-84 Oxygen Sat 100% on room air. Intake 350 and Output 200. Positive balance 150. Weight 190 lbs. Examination HEENT: Pupils reactive. Conjunctiva pink, Sclera: white. Neck: Supple. Trachea central. Chest: Bilateral breath sound, clear to auscultation anteriorly and laterally. Heart: Rhythm irregular. No audible murmur, rubs, or gallops. Abdomen: Bowel sounds present. Soft, liver and spleen not palpable . Bladder not distended. Extremities: No clubbing, cyanosis, or edema. Peripheral pulses intact, reduced in intensity. Nuero: Deep tendon reflex 2+ bilaterally. No sensory impairments. No cranial deficits. Plantar flexor____. Medications: COREG 25mg BID (157)100 mg at 120 ml at 5 mg/hour Discontinue Tricor at 145 mg PO daily LORAZEPAM 1 mg IV q4 PRN. MULTIVITAMIN: VITAMIN C, FOLIC ACID THIAMINE with D5W at 50 ml /hour ZOFRAN 4 mg IV q4 PRN for nausea and vomiting LOVASTATIN 20 mg PO daily LabData SMA:7 Sodium:143 Potassium: 4.2 Chloride: 112 CO2: 20 BUN: 25 Creatinine: 1.1 Random glucose: 112 Calcium: 8.2 Phosphorus: 3.6 Magnesium: 1.9 Iron: 33 TIBC: 346 Transferrin SAT: 9 AST: 27 ALT: 38 Alkaline phosphatase: 33 Total Bilirubin: 0.7 Albumin: 4.2 Radiography: ECG: Left ventricular is mildly dilated normal. Left ventricular wall thickness mild generalized hypokinesis. Left ventricular systolic function is mild to moderately impaired with a (EF of 30-35%). Left atrium is severely dilated. Right atrium is moderately dilated. Regurgitation is severe. There is moderate tricuspid regurgitation. Severe pulmonary hypertension Impression/s: 1. Chronic A-fib admitted with rapid ventricular response. Being controlled on Cardizem,off Cardizem now and on Coreg. Adjust dose as needed to control ventricular rate. 2. Moderately impaired left ventricular systolic function with the estimated 30- 35% directly related to alcohol abuse. 3. Severe pulmonary hypertension secondary to congestive heart failure. 4. Nuero: stable , monitor for alcohol withdrawal/ DT 5. Pulmonary stable 6. GI: Hx of alcohol dependence. Alcohol related liver disease 7. Hematology: Coagulopathy secondary to Coumadin and alcohol dependence. Hold Coumadin. Closely monitor INR. 8. Endocrine: Blood sugar 150-180 on . Maintain sugar below 180. Best Practices: Keep ahead of 30 degree up DVT prophylaxis currently anticoagulated on Coumadin, Coumadin on hold secondary to PTI . Protonix 40 PO daily. EtOH dependence on D5W with thiamine folic acid and B12 closely monitor for DT Hugh Zapata MD MTDD
== END 2017-04-14 13:55 | disposition home or self-care (01) | DRG 138 ==
LOC: H.ER 22:47 → H.ERHOLD 04-12 01:04 → H.ICU/CCU 04-12 03:00 → H.TEL 04-14 00:40
PROVIDERS: ADMIT Internal Medicine; ATTEND Internal Medicine
DX: I48.1 Persistent atrial fibrillation (principal); E86.0 Dehydration; I27.2 Other secondary pulmonary hypertension; I10 Essential (primary) hypertension; E11.9 Type 2 diabetes mellitus without complications; E78.5 Hyperlipidemia, unspecified; D64.9 Anemia, unspecified; K29.70 Gastritis, unspecified, without bleeding; I34.0 Nonrheumatic mitral (valve) insufficiency; T45.515A Adverse effect of anticoagulants, initial encounter; Z79.01 Long term (current) use of anticoagulants; R79.1 Abnormal coagulation profile

== ENCOUNTER 2017-05-15 12:07 | Emergency (ER) | payer OTHER ==
[2017-05-15 12:07] VITALS: PULSE 98; BMI 28.1
[2017-05-15 12:27] VITALS: BP 147/78; PULSE 82; RESP 16; TEMP 97
--- NOTE | 2017-05-15 12:42 | ED PDOC ---
HPI: General Adult Time Seen by Provider: 05/15/17 12:30 Chief Complaint (Nursing): Abnormal Labs History Per: Patient Onset/Duration Of Symptoms: Unknown Current Symptoms Are (Timing): Still Present Pain Scale Rating Of: 0 Additional Complaint(s): Pt contacted by [facility]. Reports abnormal labs due to his coumadin use. Denies pain Past Medical History Vital Signs: Last Vital Signs Temp 97.0 F L 05/15/17 12:25 Pulse 82 05/15/17 12:25 Resp 16 05/15/17 12:25 BP 147/78 05/15/17 12:25 Pulse Ox 99 05/15/17 12:41 - Medical History PMH: Atrial Fibrillation, Cardia Arrhythmia, Diabetes, Gastritis, HTN, Hypercholesterolemia, Peripheral Edema Denies: HIV, Chronic Kidney Disease - Family History Family History: States: Unknown Family Hx - Home Medications Home Medications: Ambulatory Orders Medication Instructions Recorded Carvedilol [Coreg] 25 mg PO BID #60 04/14/17 Digoxin [Lanoxin] 0.25 mg PO DAILY #30 tab 04/14/17 Fenofibrate [Triglide] 160 mg PO DAILY #30 04/14/17 Losartan [Cozaar] 50 mg PO DAILY #30 04/14/17 Lovastatin 20 mg PO DAILY #30 04/14/17 Warfarin [Coumadin] 1 mg PO DAILY #7 04/14/17 metFORMIN [glucOPHAGE] 500 mg PO DAILY #30 04/14/17 - Allergies Allergies/Adverse Reactions: Allergies Allergy/AdvReac Type Severity Reaction Status Date / Time No Known Allergies Allergy Verified 05/15/17 13:21 Review of Systems ROS Statement: Except As Marked, All Systems Reviewed And Found Negative Physical Exam - Reviewed Nursing Documentation Reviewed: Yes Vital Signs Reviewed: Yes - Physical Exam Appears: Positive for: Non-toxic, No Acute Distress Head Exam: Positive for: ATRAUMATIC, NORMAL INSPECTION, NORMOCEPHALIC Skin: Positive for: Normal Color (No echhymosis), Warm Eye Exam: Positive for: EOMI, Normal appearance, PERRL ENT: Positive for: Normal ENT Inspection Neck: Positive for: Normal, Painless ROM Cardiovascular/Chest: Positive for: Regular Rate, Rhythm Respiratory: Positive for: CNT, Normal Breath Sounds Gastrointestinal/Abdominal: Positive for: Normal Exam, Bowel Sounds, Soft Back: Positive for: Normal Inspection Extremity: Positive for: Normal ROM Neurologic/Psych: Positive for: Alert, Oriented - Laboratory Results Result Diagrams: 05/15/17 12:40 05/15/17 12:40 - ECG O2 Sat by Pulse Oximetry: 99 Disposition - Clinical Impression Clinical Impression: Coumadin toxicity - Patient ED Disposition Is Patient to be Admitted: No Counseled Patient/Family Regarding: Studies Performed, Diagnosis, Need For Followup - Disposition Referrals: [facility] [Outside] Disposition: Routine/Home Disposition Time: 13:45 Condition: FAIR Additional Instructions: Hold Coumadin until seen at [facility] tomorrow Instructions: Warfarin (By mouth) Forms: [employer] (Sammarinese) Print Language: SLOVAK
[2017-05-15 12:58] LABS: BASO # 0.1 K/uL (0.0-0.2); BASO % 0.8 % (0.0-2.0); EOS # 0.2 K/uL (0.0-0.7); EOS % 3.7 % (0.0-4.0); LYMPH # 1.7 K/uL (1.0-4.3); MEAN CORPUSCULAR HEMOGLOBIN 29.1 pg (27.0-31.0); MEAN CORPUSCULAR HGB CONC 33.6 g/dL (33.0-37.0); MEAN PLATELET VOLUME 10.8 fl (7.2-11.7); MONO # 0.4 K/uL (0.0-0.8); MONO % 5.7 % (0.0-10.0); NEUT # 4.2 K/uL (1.8-7.0); NEUT % 63.8 % (50.0-75.0); NRBC % 0.1 % (0.0-0.0); RBC 5.16 Mil/uL (4.40-5.90); RED CELL DISTRIBUTION WIDTH 14.3 % (11.5-14.5); WHITE BLOOD COUNT 6.6 K/uL (4.8-10.8)
[2017-05-15 13:00] LABS: MEAN CELL VOLUME 86.8 fl (80.0-94.0)
[2017-05-15 13:01] LABS: ALB/GLOB RATIO 1.4 (1.0-2.1); ALBUMIN 4.6 g/dL (3.5-5.0); ALT/SGPT 43 U/L (21-72); AST/SGOT 37 U/L (17-59); BLOOD UREA NITROGEN 22 mg/dl (9-20); CALCIUM 9.4 mg/dL (8.4-10.2); GFR AFRICAN-AMERICAN > 60; GFR NON-AFRICAN AMERICAN > 60
[2017-05-15 13:20] LABS: INR 5.8 (0.9-1.2); PROTHROMBIN TIME 62.1 Seconds (9.8-13.1)
[2017-05-15 14:05] VITALS: O2SAT 98
== END 2017-05-15 14:05 | disposition home or self-care (01) ==
LOC: H.ER 12:07
DX: T45.515A Adverse effect of anticoagulants, initial encounter (principal); Y92.89 Other specified places as the place of occurrence of the external cause; I48.91 Unspecified atrial fibrillation; I10 Essential (primary) hypertension; E78.00 Pure hypercholesterolemia, unspecified

== ENCOUNTER 2017-11-26 18:07 | Emergency (ER) | payer OTHER ==
[2017-11-26 18:08] VITALS: PULSE 98; BMI 28.1
[2017-11-26 18:16] VITALS: BP 101/54; PULSE 101; RESP 20; TEMP 98.2; O2SAT 99
[2017-11-26] MEDS ORDERED: Absorbable Gelatin Sponge Size 12-7 TP STA (18:22)
--- NOTE | 2017-11-26 18:26 | ED PDOC ---
HPI: Wound Care - HPI Time Seen by Provider: 11/26/17 18:19 Chief Complaint (Nursing): Abnormal Skin Integrity Chief Complaint (Provider): thumb laceration History Per: Patient, Block Chopper Hand (nirmal Sauer, at bedside for Nicaraguan translation) Additional Complaint(s): 57 year old right hand dominant male presents with skin avulsion to thumb sustained at 2 am last night when patient accidentally cut his thumb at work. Patient did not seek medical attention last night. He states tetanus is up to date. Patient takes xarelto daily. He states bleeding has not stopped prompting visit to ED this evening. Tetanus is up to date. Patient denies any pain, numbness or tingling to affected area. PMD: none Past Medical History Reviewed: Historical Data, Nursing Documentation, Vital Signs Vital Signs: Last Vital Signs Temp 98.2 F 11/26/17 18:11 Pulse 101 H 11/26/17 18:11 Resp 20 11/26/17 18:11 BP 101/54 L 11/26/17 18:11 Pulse Ox 99 11/26/17 18:11 - Medical History PMH: Atrial Fibrillation, Cardia Arrhythmia, Diabetes, Gastritis, HTN, Hypercholesterolemia, Peripheral Edema - Family History Family History: States: No Known Family Hx - Living Arrangements Living Arrangements: With Family - Social History Current smoker - smoking cessation education provided: No Alcohol: None Drugs: Denies - Immunization History Hx Tetanus Toxoid Vaccination: Yes (last booster was 1 year ago) - Home Medications Home Medications: Ambulatory Orders Medication Instructions Recorded Carvedilol [Coreg] 25 mg PO BID #60 04/14/17 Digoxin [Lanoxin] 0.25 mg PO DAILY #30 tab 04/14/17 Fenofibrate [Triglide] 160 mg PO DAILY #30 04/14/17 Losartan [Cozaar] 50 mg PO DAILY #30 04/14/17 Lovastatin 20 mg PO DAILY #30 04/14/17 Warfarin [Coumadin] 1 mg PO DAILY #7 04/14/17 metFORMIN [glucOPHAGE] 500 mg PO DAILY #30 04/14/17 - Allergies Allergies/Adverse Reactions: Allergies Allergy/AdvReac Type Severity Reaction Status Date / Time No Known Allergies Allergy Verified 05/15/17 13:21 Review of Systems ROS Statement: Except As Marked, All Systems Reviewed And Found Negative Constitutional: Negative for: Fever Musculoskeletal: Positive for: Other (skin avulsion to thumb) Physical Exam - Reviewed Nursing Documentation Reviewed: Yes Vital Signs Reviewed: Yes - Physical Exam Appears: Positive for: Well, Non-toxic, No Acute Distress Skin: Negative for: Rash Eye Exam: Positive for: Normal appearance Extremity: Positive for: Other (1 cm superficial skin avulsion noted to distal aspect of right thumb, minimal active bleeding, fingernail intact, normal sensation surrounding wound) Neurologic/Psych: Positive for: Alert, Oriented - ECG O2 Sat by Pulse Oximetry: 99 Pulse Ox Interpretation: Normal Medical Decision Making Medical Decision Making: Impression: Skin avulsion to thumb Procedure Note:Wound irrigated with NS, gel foam applied overlying wound, secured with sterile gauze and cling wrap, good blood control achieved. Procedure was tolerated well by patient. Patient states xarelto is prescribed by test rider. Patient was instructed to follow up this week with test rider. Patient given wound care instructions. Advised follow up with PMD in 2-3 days. Disposition - Clinical Impression Clinical Impression: Skin avulsion - Patient ED Disposition Is Patient to be Admitted: No Counseled Patient/Family Regarding: Need For Followup - Disposition Referrals: [facility] [Outside] Disposition: Routine/Home Disposition Time: 18:40 Condition: STABLE Additional Instructions: Keep bandage in place for 2 days, then remove bandage and foam. Tylenol for pain as needed. Follow up with primary care doctor. Instructions: Laceration Repair Forms: [employer] (Nicaraguan) Print Language: GREEK
== END 2017-11-26 18:56 | disposition home or self-care (01) ==
LOC: H.ER 18:07
DX: S61.011A Laceration without foreign body of right thumb without damage to nail, initial encounter (principal); W26.8XXA Contact with other sharp object(s), not elsewhere classified, initial encounter; Y99.0 Civilian activity done for income or pay; E11.9 Type 2 diabetes mellitus without complications; E78.00 Pure hypercholesterolemia, unspecified; I10 Essential (primary) hypertension; I48.91 Unspecified atrial fibrillation; Z79.01 Long term (current) use of anticoagulants; Z79.84 Long term (current) use of oral hypoglycemic drugs